=== PATIENT | female | born 1950 | race Caucasian/White ===

== ENCOUNTER 2016-09-10 19:27 | Emergency (ER) | payer MEDICARE, OTHER ==
[2016-09-10 19:37] VITALS: BP 163/80
[2016-09-10] MEDS ORDERED: Doxycycline 100 MG Cap PO ONE (20:00)
[2016-09-10] MEDS ORDERED: Diphtheria,Pertussis(Acell),Tetanus Vaccine 0.5 ML SDV IM ONE (20:01)
--- NOTE | 2016-09-10 20:06 | EDM.PDOC ---
ED HPI GENERAL MEDICAL PROBLEM - General Chief Complaint: Lower Extremity Injury/Pain Stated Complaint: LEFT ANKLE INJURY Time Seen by Provider: 09/10/16 20:03 Source of Information: Reports: Patient History Limitations: Reports: No Limitations - History of Present Illness INITIAL COMMENTS - FREE TEXT/NARRATIVE: 65 year old female presents for left lower leg pain and erythema. Patient is visiting from [place]. The have been traveling by RV. Reports about 2 days ago she cut her left lateral ankle on a metal start attached to their RV. Since the injury she has developed pain and erythema to the left lateral distal lower leg. She has been leaning the wound but the area of erythema is increasing. Denies any fevers, chills, nausea, vomiting, numbness or tingling. Unsure of last tetanus. Location: Reports: Lower Extremity, Left Left Leg Pain Score (Numeric/FACES): 7 - Related Data Allergies Allergy/AdvReac Type Severity Reaction Status Date / Time codeine Allergy Itching Verified 09/10/16 19:37 Home Meds: Home Meds Doxycycline [Vibramycin] 100 mg PO BID #19 cap 09/10/16 [Rx] Past Medical History Cardiovascular History: Reports: Heart Murmur, High Cholesterol, Hypertension Gastrointestinal History: Reports: Chronic Diarrhea, Irritable Bowel Syndrome Musculoskeletal History: Reports: Osteoarthritis Endocrine/Metabolic History: Reports: Diabetes, Type II, Hypothyroidism - Past Surgical History HEENT Surgical History: Reports: Other (See Below) Other HEENT Surgeries/Procedures: throat surgery Musculoskeletal Surgical History: Reports: Other (See Below) Other Musculoskeletal Surgeries/Procedures:: back surgery Social & Family History - Family History Family Medical History: Noncontributory - Tobacco Use Smoking Status *Q: Never Smoker - Caffeine Use Caffeine Use: Reports: Tea - Recreational Drug Use Recreational Drug Use: No Review of Systems - Review of Systems Review Of Systems: See Below Constitutional: Denies: Chills, Fever GI/Abdominal: Denies: Nausea, Vomiting Musculoskeletal: Reports: Leg Pain (left lateral distal lower leg) Skin: Reports: Erythema, Wound Neurological: Denies: Numbness, Tingling, Difficulty Walking ED EXAM, GENERAL - Physical Exam Exam: See Below Exam Limited By: No Limitations General Appearance: Alert, WD/WN, No Apparent Distress Respiratory/Chest: No Respiratory Distress Cardiovascular: Normal Peripheral Pulses, Regular Rate, Rhythm Peripheral Pulses: 3+: Posterior Tibial (L), Posterior Tibial (R), Dorsalis Pedis (L), Dorsalis Pedis (R) Extremities: Normal Range of Motion, Normal Capillary Refill, Increased Warmth ( left lateral distal lower leg) Neurological: Alert, Oriented, Normal Cognition Psychiatric: Normal Affect, Normal Mood Skin Exam: Warm, Dry, Erythema (left lateral distal lower left leg has a blanching area of deep erythema approximately 6 x4 cm with 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 from the left ankle to the left mid lower leg, associated tenderness and increased warmth; minimal swelling to the area) Course - Vital Signs Last Recorded V/S: Last Vital Signs Temp 36.6 C 09/10/16 19:33 Pulse 78 09/10/16 19:33 Resp 18 09/10/16 19:33 BP 163/80 H 09/10/16 19:33 Pulse Ox 96 09/10/16 19:33 - Orders/Labs/Meds Meds: Medications Discontinued Medications Generic Name Dose Route Start Last Admin Trade Name Freq PRN Reason Stop Dose Admin Diphtheria/Tetanus/Acell Pertussis 0.5 ml 09/10/16 20:01 09/10/16 20:13 Adacel IM 09/10/16 20:02 0.5 ml .ONCE ONE Administration Doxycycline Hyclate 200 mg 09/10/16 20:00 09/10/16 20:15 Vibramycin PO 09/10/16 20:01 200 mg ONETIME ONE Administration Departure - Departure Time of Disposition: 20:03 Disposition: Home, Self-Care 01 Condition: Good Clinical Impression: Cellulitis and abscess of left leg - Discharge Information Prescriptions: Doxycycline [Vibramycin] 100 mg PO BID #19 cap Instructions: Abscess, [id number], Cellulitis, Adult, [id number] Referrals: PCP,Not In Area [Primary Care Provider] - Forms: ED Department Discharge Additional Instructions: Take [id number] Tylenol or Motrin as needed for pain relief. Ice the area if you appreciate swelling. Doxycycline twice a day for 10 days. first dose was given in the ER. Start your prescription tomorrow. This medication can cause photosensitivity so make sure you are applying plenty of sunscreen and avoiding sunlight while you are on this medication. Follow-up with family medicine or a walk in clinic if your symptoms are not much better in 7-10 days. Please return to the ER if symptoms change or worsen.
== END 2016-09-10 20:21 | disposition home or self-care (01) ==
LOC: JD.ED 19:27
DX: L03.116 Cellulitis of left lower limb (principal); L02.416 Cutaneous abscess of left lower limb; E78.00 Pure hypercholesterolemia, unspecified; I10 Essential (primary) hypertension; E03.9 Hypothyroidism, unspecified; M19.90 Unspecified osteoarthritis, unspecified site; E11.9 Type 2 diabetes mellitus without complications; Z88.5 Allergy status to narcotic agent; Z23 Encounter for immunization; Z98.890 Other specified postprocedural states
CPT/HCPCS: 87070; 90471; 90715; 99283; A9270